=== PATIENT | female | born 1930 | race Caucasian/White ===

== ENCOUNTER 2016-10-07 11:05 | Emergency (ER) | payer MEDICARE, OTHER ==
[~2016-10-07] VITALS: Ht 157.5 cm; Wt 41.7 kg
[~2016-10-07 11:05] MED LIST: BACLOFEN10 MG PO; CYANOCOBAL1000 MCG/M IM; CYPROHEPTADINE H4 MG PO; HYDROCODON-ACE1 EA10 PO; IBUPROFEN800 MG PO; LEVOTHYROXINE50 MCG PO; LIDOCAINE HCL30 ML TOP; LISINOPRIL-HCT1 EACH PO; NORCO 5-325 TA1 EACH PO; NORCO 7.5-3251 EACH PO; ROPINIROLE HCL1 MG PO; SUCRALFATE1 GM PO; TRAMADOL HCL50 MG PO; TRAZODONE HCL100 MG PO; XARELTO10 MG PO; ZANAFLEX4 MG PO
== END 2016-10-07 11:28 | disposition home or self-care (01) ==
LOC: ED 11:05
DX: R07.81 Pleurodynia (principal); Z00.8 Encounter for other general examination

== ENCOUNTER 2020-03-05 15:07 | Inpatient (IN) | payer MEDICARE, MEDICAID ==
[~2020-03-05] VITALS: Ht 157.5 cm; Wt 43.2 kg
--- NOTE | ~2020-03-05 | EKG ---
[facility] [address] [facility] [place], [place] [address] Draft EK completed, results pending confirmation PATIENT NAME: SACHIN PLAZA Electrocardiogram DATE OF : 32 PHYSICIAN: PRELIMINARY REPORT #: [id number] REPORT IS CONFIDENTIAL AND NOT TO BE RELEASED WITHOUT AUTHORIZATION
[2020-03-05] MEDS ORDERED: ROPINIROLE HCL1 MG PO (15:27)
[2020-03-05] MEDS ORDERED: NORCO 7.5-3251 EACH PO (15:28)
[2020-03-05] MEDS ORDERED: PRINIVIL10 MG PO (15:29)
[2020-03-05] MEDS ORDERED: DULOXETINE HCL60 MG PO (15:30)
[2020-03-05] MEDS ORDERED: HYDROCODON-ACE1 EA10 PO (15:30)
--- NOTE | 2020-03-05 21:21 | EKG ---
[facility] [address] [facility] [place] [address] Signed Sinus rhythm with premature atrial complexes Otherwise normal ECG No previous ECGs available Confirmed by JAC BURGOS MD ([id number]) on 03/05/2020 9:21:32 PM Electronically Signed By: JAC BURGOS MD 03/05/202120 PATIENT NAME: SACHIN PLAZA Electrocardiogram DATE OF : 32 PHYSICIAN: JAC BURGOS MD REPORT #: [id number] REPORT IS CONFIDENTIAL AND NOT TO BE RELEASED WITHOUT AUTHORIZATION
--- NOTE | 2020-03-05 21:24 | EKG ---
[facility] [address] [facility] [place], [place] [address] Signed Sinus rhythm with frequent premature ventricular complexes Otherwise normal ECG When compared with ECG of 05-MAR-2020 21:09, (Unconfirmed) No significant change was found Confirmed by JAC BURGOS MD ([id number]) on 03/05/2020 9:24:02 PM Electronically Signed By: JAC BURGOS MD 03/05/202123 PATIENT NAME: SACHIN PLAZA Electrocardiogram DATE OF : 32 PHYSICIAN: JAC BURGOS MD REPORT #: [id number] REPORT IS CONFIDENTIAL AND NOT TO BE RELEASED WITHOUT AUTHORIZATION
[2020-03-06] MEDS ORDERED: CALCIUM 500 +1 EAC2 PO (18:27)
[2020-03-06] MEDS ORDERED: POTASSIUM GLUCO99 MG PO (18:27)
[2020-03-06] MEDS ORDERED: MELATONIN3 MG PO (18:28)
[2020-03-06] MEDS ORDERED: PRESERVISION A1 EAC3 PO (18:29)
[2020-03-06] MEDS ORDERED: LEG CRAMPS PO (18:29)
--- NOTE | 2020-03-07 07:55 | OR ---
[facility] [address] [place], [place] [address] Signed DATE OF OPERATION: 03/06/2020 SURGEON: Arlette Victoria MD PREOPERATIVE DIAGNOSIS: Left intertrochanteric hip fracture. POSTOPERATIVE DIAGNOSIS: Left intertrochanteric hip fracture. PROCEDURE PERFORMED: Open reduction and internal fixation of left hip. HOSPICE SOCIAL WORKER: Hermila Smith PA-C. Hermila was present and critical for all portions of the procedure. ANESTHESIA: Spinal. BLOOD LOSS: 75 mL. IMPLANTS: Synthes TFN 12 x 235 with an 80 spiral blade and a 36 mm distal locking screw. BRIEF HISTORY: Sachin is an 89-year-old female with a ground level fall yesterday evening. She landed directly on her hip. She was transported to the Emergency Department, where radiographs showed displaced intertrochanteric hip fracture. Risks and benefits of the operative treatment discussed with her and she elected to proceed. DESCRIPTION OF PROCEDURE: Once consent was obtained, she was taken to the operating room. After adequate anesthesia, she was placed in the trauma table. The right leg was flexed, abducted, and externally rotated on a well-padded leg gregory, the left was placed in a foot traction and reduction maneuver was performed. C-arm was brought in. The reduction was found to be anatomic. We then prepped and draped the left hip in standard sterile position. It was should be noted that she did have a sacral decubitus and a dressing was placed on his prior to positioning her. The C-arm was brought in and the femoral neck line was Electronically Signed By: ARLETTE VICTORIA MD 03/07/20 0755 PATIENT NAME: SACHIN PLAZA OPERATIVE REPORT DATE OF : 32 REPORT #: [id number] PHYSICIAN: ARLETTE VICTORIA MD PCP: GEOVANNI CELIS DO REPORT IS CONFIDENTIAL AND NOT TO BE RELEASED WITHOUT AUTHORIZATION [facility] [address] [place], [place] [address] Signed drawn out as well as tip of the trochanter. A 2-inch incision was made proximally, carried through the skin and subcutaneous tissue. The IT band was split longitudinally. The greater trochanter was then palpated and a clamp was placed around it secondary due to being fairly comminuted. We then placed the curved awl to the tip of the trochanter and advanced until the center portion of the femur distally. The guide boyd was then advanced distally. We over-reamed the proximal end with a 14 mm reamer. There was essentially no intramedullary bone distally, so I did not ream distally. The 12 x 235 was then selected and the boyd was placed through the greater trochanter and advanced until it was well-seated in the proper position. The guide for the spiral blade was then brought up against the lateral side of the thigh and a separate incision was made, carried through the skin and IT band, down to the bone. The guide pin was then advanced from the lateral femur across the femoral neck into the center-center position in the head. This was done under biplanar fluoroscopy. The guide pin was measured and an 80 spiral blade was selected. The drill was then used to drill to an 80 and the spiral blade was driven until it was well-seated. The guide assembly was then removed. The locking bolt proximally was then brought down, tightened onto the spiral blade and the distal locking screw was placed through a separate stab incision. The insertion assembly was then removed and all wounds were copiously irrigated with antibiotic solution. Final radiographs showed good position, anatomic reduction. The wounds were closed with #2 Stratafix for the ITB band and 2-0 Stratafix for the subcutaneous tissue and pastor for all skin incisions. They were dressed with an Acticoat dressing. She tolerated the procedure well. All sponge, needle, and instrument counts were correct. Arlette Victoria MD BA/MODL /[id number] Copies: ~ Electronically Signed By: ARLETTE VICTORIA MD 03/07/20 0755 PATIENT NAME: SACHIN PLAZA OPERATIVE REPORT DATE OF : 32 REPORT #: [id number] PHYSICIAN: ARLETTE VICTORIA MD PCP: GEOVANNI CELIS DO REPORT IS CONFIDENTIAL AND NOT TO BE RELEASED WITHOUT AUTHORIZATION
[2020-03-08] MEDS ORDERED: HYDROCODON-ACE1 EA11 PO (09:04)
[2020-03-08] MEDS ORDERED: ASPIRIN EC325 MG PO (09:04)
[2020-03-08] MEDS ORDERED: STOOL SOFTENER1 EAC4 PO (09:05)
[2020-03-09] MEDS ORDERED: TRAMADOL HCL50 MG PO (07:42)
[2020-03-09] MEDS ORDERED: ONDANSETRON HCL4 MG PO (07:42)
[2020-03-09] MEDS ORDERED: PANTOPRAZOLE SO40 MG PO (07:42)
[2020-03-09] MEDS ORDERED: AMLODIPINE BESYL5 MG PO (07:42)
[2020-03-09] MEDS ORDERED: ACETAMINOPHEN500 MG PO (07:42)
== END 2020-03-09 11:30 | disposition home or self-care (01) | DRG 482 ==
LOC: ED 15:07 → MS 17:29
PROVIDERS: ADMIT Specialist; ATTEND Specialist
PROC: 3E0T3BZ Introduction of Anesthetic Agent into Peripheral Nerves and Plexi, Percutaneous Approach (ICD-10-PCS; 2020-03-06)
PROC: 3E0T33Z Introduction of Anti-inflammatory into Peripheral Nerves and Plexi, Percutaneous Approach (ICD-10-PCS; 2020-03-06)
PROC: 0QS704Z Reposition Left Upper Femur with Internal Fixation Device, Open Approach (ICD-10-PCS; principal; 2020-03-06 12:30)
DX: S72.142A Displaced intertrochanteric fracture of left femur, initial encounter for closed fracture (principal); S72.22XA Displaced subtrochanteric fracture of left femur, initial encounter for closed fracture; G89.18 Other acute postprocedural pain; I10 Essential (primary) hypertension; E03.9 Hypothyroidism, unspecified; G25.81 Restless legs syndrome; Z20.822 Contact with and (suspected) exposure to COVID-19; Z87.891 Personal history of nicotine dependence; Z79.899 Other long term (current) drug therapy; Z88.5 Allergy status to narcotic agent; Z88.0 Allergy status to penicillin; Z88.2 Allergy status to sulfonamides; Z88.8 Allergy status to other drugs, medicaments and biological substances; W18.30XA Fall on same level, unspecified, initial encounter; Y92.009 Unspecified place in unspecified non-institutional (private) residence as the place of occurrence of the external cause
CPT/HCPCS: 01210; 36415; 64447; 64450; 71045; 73501; 73502; 76942; 80048; 80053; 81001; 83735; 84484; 85025; 85610; 85730; 86850; 86900; 86901; 93005; 93010; 96374; 96375; 97110; 97116; 97162; 97165; 97530; 99285-25; A9270; C1713; C9803; J0690; J1100; J1170; J1720; J1885; J2001; J2250; J2370; J2405; J2704; J3010; J3480; J7121; U0003

== ENCOUNTER 2020-03-25 21:35 | Emergency (ER) | payer MEDICARE, MEDICAID ==
[~2020-03-25] VITALS: Ht 157.5 cm; Wt 36.3 kg
[~2020-03-25 21:35] MED LIST changes: +ACETAMINOPHEN500 MG PO; +AMLODIPINE BESYL5 MG PO; +ASPIRIN EC325 MG PO; +CALCIUM 500 +1 EAC2 PO; +DULOXETINE HCL60 MG PO; +HYDROCODON-ACE1 EA11 PO; +LEG CRAMPS PO; +MELATONIN3 MG PO; +ONDANSETRON HCL4 MG PO; +PANTOPRAZOLE SO40 MG PO; +POTASSIUM GLUCO99 MG PO; +PRESERVISION A1 EAC3 PO; +PRINIVIL10 MG PO; +STOOL SOFTENER1 EAC4 PO
--- OUTSIDE RECORDS SUMMARY | 2020-03-25 21:38 | XMS ---
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 Consuelo VISIT COUNT (12 MO.) 2 [facility] TOTAL 2 NOTE: Visits indicate total known visits. ED/UCC VISIT TRACKING (12 MO.) 03/25/2020 21:36 [facility] TYPE: Emergency COMPLAINT: - POST OP ISSUE 03/05/2020 15:07 [facility] TYPE: Emergency COMPLAINT: - FALL,LEFT SIDE HIP PAIN INPATIENT VISIT TRACKING (12 MO.) 03/05/2020 17:29 [facility] TYPE: Medical Surgical COMPLAINT: - L HIP FX DIAGNOSES: - Allergy status to narcotic agent - Allergy status to other drugs, medicaments and biological substances - Other acute postprocedural pain - Hypothyroidism, unspecified - Allergy status to sulfonamides - Allergy status to sulfonamides - Restless legs syndrome - Fall on same level, unspecified, initial encounter - Personal history of nicotine dependence - Restless legs syndrome - Hypothyroidism, unspecified - Personal history of nicotine dependence - Allergy status to penicillin - Allergy status to penicillin - Displaced intertrochanteric fracture of left femur, initial encounter for closed fracture - 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 - Essential (primary) hypertension - Allergy status to narcotic agent - Fall on same level, unspecified, initial encounter - Displaced subtrochanteric fracture of left femur, initial encounter for closed fracture - Unspecified place in unspecified non-institutional (private) residence as the place of occurrence of the external cause - Other prison (current) drug therapy - Unspecified place in unspecified non-institutional (private) residence as the place of occurrence of the external cause - Essential (primary) hypertension - Allergy status to other drugs, medicaments and biological substances - Other acute postprocedural pain - Displaced subtrochanteric fracture of left femur, initial encounter for closed fracture [email or web address]
== END 2020-03-25 22:53 | disposition home or self-care (01) ==
LOC: ED 21:35
DX: M96.842 Postprocedural seroma of a musculoskeletal structure following a musculoskeletal system procedure (principal); E03.9 Hypothyroidism, unspecified; I10 Essential (primary) hypertension; K21.9 Gastro-esophageal reflux disease without esophagitis; Z87.891 Personal history of nicotine dependence; Z88.5 Allergy status to narcotic agent; Z88.0 Allergy status to penicillin; Z88.2 Allergy status to sulfonamides; Z88.8 Allergy status to other drugs, medicaments and biological substances; Z79.899 Other long term (current) drug therapy
CPT/HCPCS: 73502; 99283-25

== ENCOUNTER 2020-04-02 15:06 | Emergency (ER) | payer MEDICARE, MEDICAID ==
[~2020-04-02] VITALS: Ht 157.5 cm; Wt 35.3 kg
--- OUTSIDE RECORDS SUMMARY | 2020-04-02 15:08 | XMS ---
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 Care History Medical/Surgical 03/27/2020 [facility] - Patient is currently established with [facility]. If patient is seen in the ED during business hours. Please contact CHWs at [facility]. Care Recommendation: If this patient has had 5 or more Emergency Department visits in the last 12 months.\T\nbsp; Patient will require education on the scope and purpose of the ED as an acute care provider not a Primary Care Provider and should not be utilized for chronic conditions.\T\nbsp; These are guidelines and the provider should exercise clinical judgment when providing care. E.D. VISIT COUNT (12 MO.) 3 [facility] TOTAL 3 NOTE: Visits indicate total known visits. ED/UCC VISIT TRACKING (12 MO.) 04/02/2020 15:07 [facility] TYPE: Emergency COMPLAINT: - CONSTIPATED 03/25/2020 21:36 [facility] TYPE: Emergency COMPLAINT: - POST OP ISSUE DIAGNOSES: - Personal history of nicotine dependence - Allergy status to sulfonamides - Allergy status to other drugs, medicaments and biological substances - Other half-way (current) drug therapy - Essential (primary) hypertension - Allergy status to narcotic agent - Allergy status to penicillin - Gastro-esophageal reflux disease without esophagitis - Postprocedural seroma of a musculoskeletal structure following a musculoskeletal system procedure - Hypothyroidism, unspecified 03/05/2020 15:07 [facility] TYPE: Emergency [...] initial encounter for closed fracture - 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 - Essential (primary) hypertension - Allergy status to narcotic agent - Fall on same level, unspecified, initial encounter - Displaced subtrochanteric fracture of left femur, initial encounter for closed fracture - Unspecified place in unspecified non-institutional (private) residence as the place of occurrence of the external cause - Other half-way (current) drug therapy - Unspecified place in unspecified non-institutional (private) residence as the place of occurrence of the external cause - Essential (primary) hypertension - Allergy status to other drugs, medicaments and biological substances - Other acute postprocedural pain - Displaced subtrochanteric fracture of left femur, initial encounter for closed fracture [email or web address]
[2020-04-02] MEDS ORDERED: TRAZODONE HCL50 MG PO (15:47)
[2020-04-02] MEDS ORDERED: CONSTULOSE10 GM/15 M PO (15:47)
== END 2020-04-02 18:55 | disposition home or self-care (01) ==
LOC: ED 15:06
DX: K56.41 Fecal impaction (principal); E03.9 Hypothyroidism, unspecified; I10 Essential (primary) hypertension; K21.9 Gastro-esophageal reflux disease without esophagitis; Z87.891 Personal history of nicotine dependence; Z88.5 Allergy status to narcotic agent; Z88.0 Allergy status to penicillin; Z88.2 Allergy status to sulfonamides; Z88.8 Allergy status to other drugs, medicaments and biological substances; Z79.899 Other long term (current) drug therapy
CPT/HCPCS: 99283